=== PATIENT | female | born 2000 | race African-American/Black ===

== ENCOUNTER 2025-06-04 22:51 | Emergency (ER) | payer OTHER ==
[~2025-06-04] VITALS: Ht 165.1 cm; Wt 51.6 kg
[2025-06-04 23:28] VITALS: O2SAT 100
[2025-06-05] MEDS ORDERED: AMLO5TAB6 MT (01:06)
[2025-06-05] MEDS: AMLODIPINE 5MG TABLET PO STA (01:32)
[2025-06-05 01:33] VITALS: BP 145/102; PULSE 72; RESP 16; TEMP 36.7; O2SAT 100
== END 2025-06-05 01:35 | disposition home or self-care (01) ==
LOC: ER 22:51
DX: I10 Essential (primary) hypertension (principal); Z79.899 Other long term (current) drug therapy
CPT/HCPCS: 99283